=== PATIENT | male | born 1960 | race Two or more races ===

== ENCOUNTER 2018-07-26 07:52 | Day surgery (SDC) | payer OTHER | END 2018-07-26 11:54 | disposition home or self-care (01) | LOC: AMB-ENDOS 07:52 | DX: D12.7 Benign neoplasm of rectosigmoid junction (principal) ==

== ENCOUNTER → 2020-01-05 08:00 | Outpatient (CLI) | payer OTHER | END | disposition home or self-care (01) | LOC: LAB 08:00 → ADM 13:45 → AMB-ENDOS 01-09 13:45 → ADM 01-09 13:45 → EDSTATUS 01-09 13:45 | PROVIDERS: ATTEND Colon & Rectal Surgery | DX: D12.5 Benign neoplasm of sigmoid colon (principal); Z01.812 Encounter for preprocedural laboratory examination; Z20.828 Contact with and (suspected) exposure to other viral communicable diseases; K92.1 Melena; Z86.010 Personal history of colon polyps ==

== ENCOUNTER 2020-03-26 06:41 | Day surgery (SDC) | payer OTHER | END 2020-03-26 11:50 | disposition home or self-care (01) | LOC: AMB-ENDOS 06:41 | PROVIDERS: ATTEND Colon & Rectal Surgery | DX: K62.1 Rectal polyp (principal); K64.0 First degree hemorrhoids; Z20.828 Contact with and (suspected) exposure to other viral communicable diseases ==